=== PATIENT | female | born 1990 | race Caucasian/White ===

== ENCOUNTER 2018-09-13 18:42 | Emergency (ER) | payer OTHER ==
--- NOTE | 2018-09-13 19:41 | Emergency Department Report ---
Blank Doc - Documentation Documentation: This is a 28-year-old female that presents with a scaly rash to the neck area. Stated is itching and painful. Denies any recent travels. This initial assessment/diagnostic orders/clinical plan/treatment(s) is/are subject to change based on patient's health status, clinical progression and re- assessment by fellow clinical providers in the ED. Further treatment and workup at subsequent clinical providers discretion. Patient/guardians urged not to elope from the ED as their condition may be serious if not clinically assessed and managed. Initial orders include: 1- Patient sent to [facility] for further evaluation and treatment
--- NOTE | 2018-09-14 01:07 | Emergency Department Report ---
ED Rash HPI - HPI Chief Complaint: Skin Rash Stated Complaint: SKIN IRRITATION Time Seen by Provider: 09/13/18 19:40 Other History: Pt presents to the ED with c/o a rash to the back of her neck that began one month ago. She states that it itches. She denies any fever, drainage, insect bite, recent travel. She denies any one else with the rash. The patient states she has not seen anyone for the rash. She states she just bought a triple antibiotic ointment cream today. ED Review of Systems ROS: Stated complaint: SKIN IRRITATION Other details as noted in HPI Comment: All other systems reviewed and negative ED Past Medical Hx - Past Medical History Previous Medical History?: No - Surgical History Past Surgical History?: No - Social History Smoking Status: Never Smoker Substance Use Type: None - Medications Home Medications: Home Medications Medication Instructions Recorded Confirmed Last Taken Type Clotrimazole [Antifungal Ringworm] 1 gm TP BID #14.2 cream..g. 09/14/18 Unknown Rx Rash Exam - Exam General: Vital signs noted. No distress. Alert and acting appropriately. HEENT: No Periorbital Edema, No Conjuctival Injection, No Chemosis, No Perioral Edema, No Tongue Edema, No Uvular Edema, No Compromised Airway, No Drooling Skin: Yes Other (quarter sized macule with erythema and scaling present to the posterior surface of the neck, no drainage, no lesions, no induration) ED Course Vital Signs 09/13/18 19:40 Temperature 98 F Pulse Rate 78 Respiratory 16 Rate Blood Pressure 123/76 ED Medical Decision Making - Medical Decision Making Pt presents to the ED with c/o a rash to the back of her neck that began one month ago. She states that it itches. She denies any fever, drainage, insect bite, recent travel. She denies any one else with the rash. The patient states she has not seen anyone for the rash. She states she just bought a triple antibiotic ointment cream today. Examination consistent with tinea corporis. VSS. Will give pt clotrimazole. Pt can use benadryl OTC as needed for itching. Advised pt to see her PCP in the next 2-3 days. Return to the emergency room for any new or worsening symptoms. - Differential Diagnosis Tinea, dermatitis Critical care attestation.: If time is entered above; I have spent that time in minutes in the direct care of this critically ill patient, excluding procedure time. ED Disposition Clinical Impression: Tinea corporis Disposition: - TO HOME OR SELFCARE Is pt being admited?: No Does the pt Need Aspirin: No Condition: Stable Instructions: Tinea Corporis (ED) Additional Instructions: Follow up with your primary care doctor in the next 2-3 days. Apply cream once in the morning and once at night. May use benadryl over the counter as needed for itching. Return to the emergency room for any new or worsening symptoms. Prescriptions: Clotrimazole [Antifungal Ringworm] 1 gm TP BID #14.2 cream..g. Referrals: GRAYSON FISHMAN MD [Primary Care Provider] - 2-3 Days Time of Disposition: 01:10 Print Language: [id number]
[2018-09-14 01:24] VITALS: BP 120/69
== END 2018-09-14 01:23 | disposition home or self-care (01) ==
LOC: ED 18:42
DX: B35.4 Tinea corporis (principal)
CPT/HCPCS: 99282